=== PATIENT | male | born 1950 | race Two or more races ===

== ENCOUNTER 2018-01-30 03:37 | Emergency (ER) | payer OTHER ==
[~2018-01-30] VITALS: Ht 180.3 cm; Wt 69.9 kg
[2018-01-30 04:28] LABS: Hematocrit 38.1 % (41.0-53.0); Hemoglobin 12.6 g/dL (13.5-17.5); Mean Corpuscular Hemoglobin 27.1 pg (28.0-32.0); Platelet Count (auto) 252 10^3/uL (140-450); Red Blood Cells 4.64 10^6/uL (4.5-5.90); Red Cell Distribution Width 17.3 % (11.8-14.3)
[2018-01-30 04:31] LABS: Basophils % (manual) 0 (0.0-2.0); Blast Cells 0; Metamyelocytes % 0; Myelocytes % 0; Promyelocytes % 0; Reactive Lymphocytes 0
[2018-01-30 04:48] LABS: BUN/Creatinine Ratio 32.8; Potassium 3.4 mmol/L (3.5-5.1)
[2018-01-30 04:51] LABS: Bilirubin, Total 0.8 mg/dL (0.2-1.0); Total Protein 8.6 g/dL (6.4-8.2)
[2018-01-30 04:57] LABS: Band Neutrophils % (manual) 2; Eosinophils % (manual) 1 (0-7); Lymphocytes % (manual) 6 (10.0-50.0); Monocytes % (manual) 6 (0-12)
[2018-01-30 05:13] LABS: Albumin 2.7 g/dL (3.4-5.0)
[2018-01-30 09:16] LABS: Urine Bacteria NONE SEEN /hpf (None Seen); Urine Blood 3+ /uL (Negative); Urine Specific Gravity 1.017 (1.001-1.035); Urine WBC 1316 /hpf (0 - 3); Urine WBC Clumps PRESENT /hpf (None Seen)
[2018-01-30] MEDS ORDERED: SODIUM CHLORIDE 0.9% 1,000 ML IV ONE ×2 (09:56→10:15)
[2018-01-30] MEDS ORDERED: cefTRIAXone 1GM/10ml IVPUSH 10 ML IV ONE ×2 (10:00→10:15)
[2018-01-30 12:51] VITALS: BP 123/74
== END 2018-01-30 13:13 | disposition short-term general hospital (02) ==
LOC: ER 03:37
DX: E87.1 Hypo-osmolality and hyponatremia (principal); R11.2 Nausea with vomiting, unspecified
CPT/HCPCS: 36415; 71045; 80053; 81001; 85007; 85027; 96361; 96374; 99285; J0696; J7030

== ENCOUNTER 2021-02-19 20:10 | Inpatient (IN) | payer OTHER ==
[~2021-02-19] VITALS: Ht 175.3 cm; Wt 51.1 kg
[2021-02-19] MEDS ORDERED: MORPHINE SULFATE 10 MG/ML INJ 1ML SDV IV ONE (20:45)
[2021-02-19] MEDS ORDERED: ONDANSETRON HCL 4 MG/2 ML VIAL IV ONE (20:45)
[2021-02-19] MEDS ORDERED: SODIUM CHLORIDE 0.9% 500 ML IV ONE (20:45)
[2021-02-19 21:36] LABS: Basophils # (auto) 0 10 ^3/uL (0-0.2); Basophils % (auto) 0.3 % (0.0-2.0); Eosinophils # (auto) 0.1 10 ^3/uL (0-0.8); Eosinophils % (auto) 0.7 % (0.0-7.0); Hematocrit 35.4 % (41.0-53.0); Hemoglobin 11.5 g/dL (13.5-17.5); Lymphocytes # (auto) 0.8 10 ^3/uL (0.4-5.4); Lymphocytes % (auto) 8.6 % (10.0-50.0); Mean Corpuscular Hemoglobin 29.3 pg (28.0-32.0); Mean Corpuscular Hgb Conc. 32.6 g/dL (32.0-36.0); Mean Corpuscular Volume 89.8 fL (80.0-100.0); Monocytes # (auto) 0.4 10 ^3/uL (0-1.3); Monocytes % (auto) 4.3 % (0.0-12.0); Neutrophils % (auto) 86.1 % (37.0-80.0); Nucleated Red Blood Cells % 0.1 %; Red Blood Cells 3.94 10^6/uL (4.5-5.90); Red Cell Distribution Width 19.1 % (11.8-14.3); White Blood Cell 9.3 10^3/uL (4.4-10.8)
[2021-02-19 21:54] LABS: Magnesium 2.2 mg/dL (1.6-2.6)
[2021-02-19 21:55] LABS: Albumin 3.1 g/dL (3.4-5.0); Calcium 9.5 mg/dL (8.5-10.1); Potassium 3.7 mmol/L (3.5-5.1)
[2021-02-19 22:02] LABS: BUN/Creatinine Ratio 17.4; Bilirubin, Total 0.3 mg/dL (0.2-1.0); CRP High Sensitivity 5.72 mg/dL (< 0.3); Total Protein 10.4 g/dL (6.4-8.2)
[2021-02-19] MEDS ORDERED: MORPHINE SULFATE INJECTION 2 MG/ML SYRG ONE (22:32)
[2021-02-19] MEDS ORDERED: IOHEXOL 350 MG/ML 100ML IJ ONE (23:02)
[2021-02-19] MEDS ORDERED: LIDOCAINE 2%HCL (LOCAL ANESTH.) INJ 20ML MDV ONE (23:02)
[2021-02-19] MEDS ORDERED: fentaNYL CITRATE 100 MCG/2 ML VL ONE (23:03)
[2021-02-19] MEDS ORDERED: ANGIOMAX 250 MG VIAL IV ONE (23:03)
[2021-02-19] MEDS ORDERED: MIDAZOLAM HCL 2MG/2ML 2ml VIAL (1mg/ml) ONE (23:03)
[2021-02-19] MEDS ORDERED: SODIUM CHL 0.9% 50 ML ONE (23:04)
[2021-02-19] MEDS ORDERED: VERAPAMIL 2.5MG/ML INJ 2ML VIAL IV ONE (23:29)
[2021-02-19] MEDS ORDERED: IODIXANOL 320MG/ML 100ML BTL IV ONE ×2 (23:34→23:38)
[2021-02-19] MEDS ORDERED: TICAGRELOR 90 MG TAB ONE (23:54)
[2021-02-20] VITALS (30 sets, daily range): BP systolic 101–136; BP diastolic 60–82
[2021-02-20] MEDS ORDERED: ASPirin 325 MG TAB ONE (00:06)
[2021-02-20] MEDS ORDERED: ATORVASTATIN 20 MG TAB PO SCH (00:15)
[2021-02-20] MEDS ORDERED: MORPHINE SULFATE INJECTION 2 MG/ML SYRG IV ONE ×2 (02:30)
[2021-02-20] MEDS ORDERED: MORPHINE SULFATE INJECTION 2 MG/ML SYRG ONE (02:45)
[2021-02-20] MEDS ORDERED: ONDANSETRON HCL 4 MG/2 ML VIAL IV PRN (03:15)
[2021-02-20] MEDS ORDERED: MORPHINE SULFATE INJECTION 2 MG/ML SYRG IV PRN (03:15)
[2021-02-20] MEDS ORDERED: MORPHINE SULFATE 4 MG/ML SYR/VIAL IV PRN (03:15)
[2021-02-20] MEDS ORDERED: ACETAMINOPHEN 325 MG TAB PO PRN (03:15)
[2021-02-20] MEDS ORDERED: TEMAZEPAM 15 MG CAP PO PRN (03:15)
[2021-02-20] MEDS ORDERED: NITROGLYCERIN 0.4 MG SL TAB SL PRN (03:15)
[2021-02-20 07:30] LABS: Calcium 9.2 mg/dL (8.5-10.1); Magnesium 2.4 mg/dL (1.6-2.6); Potassium 3.9 mmol/L (3.5-5.1)
[2021-02-20] MEDS: DULoxetine HCL 30 MG CAP PO SCH (09:57)
[2021-02-20] MEDS: ASPirin 81 mg TAB PO SCH (09:58)
[2021-02-20] MEDS: HYDROcodone-ACET 5/325MG TAB PO PRN ×2 (10:00→21:33)
[2021-02-20] MEDS: TICAGRELOR 90 MG TAB PO SCH ×2 (10:01→21:26)
[2021-02-20] MEDS: PANTOPRAZOLE 40 MG TAB PO SCH (10:01)
[2021-02-20] MEDS: CARVEDILOL 3.125 MG TAB PO SCH ×3 (10:30→21:28)
[2021-02-20] MEDS: SACUBITRIL-VALSARTAN 24mg/26mg TAB PO SCH (21:27)
[2021-02-20] MEDS: ATORVASTATIN 20 MG TAB PO SCH (21:28)
[2021-02-21] MEDS: HYDROcodone-ACET 5/325MG TAB PO PRN ×3 (04:45→21:26)
[2021-02-21 05:00] VITALS: BP 99/60
[2021-02-21 07:28] LABS: Potassium 4.1 mmol/L (3.5-5.1)
[2021-02-21 07:33] LABS: Basophils # (auto) 0 10 ^3/uL (0-0.2); Basophils % (auto) 0.5 % (0.0-2.0); Eosinophils # (auto) 0.1 10 ^3/uL (0-0.8); Eosinophils % (auto) 1.3 % (0.0-7.0); Hematocrit 30.9 % (41.0-53.0); Hemoglobin 10.2 g/dL (13.5-17.5); Lymphocytes # (auto) 0.4 10 ^3/uL (0.4-5.4); Lymphocytes % (auto) 5.9 % (10.0-50.0); Mean Corpuscular Hemoglobin 29.5 pg (28.0-32.0); Mean Corpuscular Hgb Conc. 32.9 g/dL (32.0-36.0); Mean Corpuscular Volume 89.7 fL (80.0-100.0); Monocytes # (auto) 0.4 10 ^3/uL (0-1.3); Monocytes % (auto) 4.9 % (0.0-12.0); Neutrophils # (auto) 6.3 10 ^3/uL (1.6-8.6); Neutrophils % (auto) 87.4 % (37.0-80.0); Red Blood Cells 3.45 10^6/uL (4.5-5.90); Red Cell Distribution Width 18.8 % (11.8-14.3); White Blood Cell 7.2 10^3/uL (4.4-10.8)
[2021-02-21 07:37] LABS: Albumin 2.2 g/dL (3.4-5.0); BUN/Creatinine Ratio 23.6; Bilirubin, Total 0.4 mg/dL (0.2-1.0); Calcium 8.7 mg/dL (8.5-10.1); Total Protein 8.2 g/dL (6.4-8.2)
[2021-02-21 08:00] VITALS: BP 101/63
[2021-02-21 09:00] VITALS: BP 98/64
[2021-02-21] MEDS: CARVEDILOL 3.125 MG TAB PO SCH ×2 (09:07→21:24)
[2021-02-21] MEDS: SACUBITRIL-VALSARTAN 24mg/26mg TAB PO SCH ×2 (09:07→21:15)
[2021-02-21] MEDS: PANTOPRAZOLE 40 MG TAB PO SCH (09:08)
[2021-02-21] MEDS: ASPirin 81 mg TAB PO SCH (09:08)
[2021-02-21] MEDS: DULoxetine HCL 30 MG CAP PO SCH (09:09)
[2021-02-21] MEDS: TICAGRELOR 90 MG TAB PO SCH (09:25)
[2021-02-21] MEDS ORDERED: FUROSEMIDE 20 MG TAB PO ONE (11:15)
[2021-02-21] MEDS ORDERED: POTASSIUM CHL 10 Meq TABLET PO ONE (11:15)
[2021-02-21 12:37] VITALS: BP 96/48
[2021-02-21 16:46] VITALS: BP 100/66
[2021-02-21] MEDS ORDERED: CLOPIDOGREL 300 MG TAB PO ONE (18:30)
[2021-02-21] MEDS ORDERED: LACTULOSE 20Gm/30ML SOLN PO PRN (19:45)
[2021-02-21] MEDS: DOCUSATE SOD 100 MG CAP PO SCH (21:15)
[2021-02-21] MEDS: ATORVASTATIN 20 MG TAB PO SCH (21:15)
[2021-02-21 22:09] VITALS: BP 104/67
[2021-02-22 05:19] VITALS: BP 118/61
[2021-02-22 06:55] LABS: BUN/Creatinine Ratio 22.6
[2021-02-22 09:00] VITALS: BP 93/61
[2021-02-22] MEDS: DOCUSATE SOD 100 MG CAP PO SCH (09:13)
[2021-02-22] MEDS: SACUBITRIL-VALSARTAN 24mg/26mg TAB PO SCH (09:14)
[2021-02-22] MEDS: CARVEDILOL 3.125 MG TAB PO SCH (09:15)
[2021-02-22] MEDS: DULoxetine HCL 30 MG CAP PO SCH (09:15)
[2021-02-22] MEDS: PANTOPRAZOLE 40 MG TAB PO SCH (09:16)
[2021-02-22] MEDS: ASPirin 81 mg TAB PO SCH (09:16)
[2021-02-22] MEDS: HYDROcodone-ACET 5/325MG TAB PO PRN (09:17)
[2021-02-22] MEDS ORDERED: CLOPIDOGREL BISULFATE 75 MG TAB PO SCH (10:00)
[2021-02-22] MEDS ORDERED: ENALAPRIL MALEATE 2.5 MG TAB PO SCH (10:00)
[2021-02-22] MEDS ORDERED: HYOSCYAMINE SULF 0.125 MG ODT TAB PO ONE (12:15)
[2021-02-22 12:35] LABS: Urine Bacteria NONE SEEN /hpf (None Seen); Urine Blood Negative /uL (Negative); Urine Hyaline Cast FEW /lpf (0 - 2); Urine Mucus FEW (None Seen); Urine Specific Gravity 1.022 (1.001-1.035); Urine WBC 42 /hpf (0 - 3)
[2021-02-22 12:38] VITALS: BP 88/57
[2021-02-22 15:03] VITALS: BP 93/61
[2021-02-22 17:28] VITALS: BP 113/52
== END 2021-02-22 18:00 | disposition home or self-care (01) | DRG 246 ==
LOC: ER 20:12 → ICU WEST 02-20 00:38 → TELE-WESTW 02-20 20:26
PROVIDERS: ADMIT Internal Medicine; ATTEND Internal Medicine
PROC: 027035Z Dilation of Coronary Artery, One Artery with Two Drug-eluting Intraluminal Devices, Percutaneous Approach (ICD-10-PCS; principal; 2021-02-19)
PROC: B2111ZZ Fluoroscopy of Multiple Coronary Arteries using Low Osmolar Contrast (ICD-10-PCS; 2021-02-19)
DX: I21.09 ST elevation (STEMI) myocardial infarction involving other coronary artery of anterior wall (principal); I50.41 Acute combined systolic (congestive) and diastolic (congestive) heart failure; C34.90 Malignant neoplasm of unspecified part of unspecified bronchus or lung; C18.9 Malignant neoplasm of colon, unspecified; I13.2 Hypertensive heart and chronic kidney disease with heart failure and with stage 5 chronic kidney disease, or end stage renal disease; R64 Cachexia; Z68.1 Body mass index [BMI] 19.9 or less, adult; R54 Age-related physical debility; N18.9 Chronic kidney disease, unspecified; K21.9 Gastro-esophageal reflux disease without esophagitis; Z20.822 Contact with and (suspected) exposure to COVID-19; Z79.02 Long term (current) use of antithrombotics/antiplatelets; Z79.82 Long term (current) use of aspirin; Z79.899 Other long term (current) drug therapy; Z80.9 Family history of malignant neoplasm, unspecified; Z85.038 Personal history of other malignant neoplasm of large intestine; Z86.16 Personal history of COVID-19
CPT/HCPCS: 36415; 71045; 74176; 80048; 80053; 81001; 82728; 83735; 83880; 84484; 85025; 86141; 87081; 87426; 92928; 93005; 93306; 93459; 96361; 96374; 96375; 99152; 99153; C1874; G0378; J2250; J2405; Q9967